=== PATIENT | male | born 1995 | race Caucasian/White ===

== ENCOUNTER 2022-10-20 15:44 | Outpatient (CLI) | payer OTHER, SELFPAY | END 2022-10-20 15:45 | disposition home or self-care (01) | PROVIDERS: PCP Emergency Medicine; Visit Provider Emergency Medicine | DX: Z00.00 Encounter for general adult medical examination without abnormal findings (principal); I10 Essential (primary) hypertension; Z13.6 Encounter for screening for cardiovascular disorders | CPT/HCPCS: 80048; 80061 ==

== ENCOUNTER 2023-10-11 08:42 | Outpatient (CLI) | payer OTHER, SELFPAY | END 2023-10-11 08:43 | disposition home or self-care (01) | PROVIDERS: PCP Emergency Medicine; Visit Provider Emergency Medicine | DX: I10 Essential (primary) hypertension (principal); Z13.220 Encounter for screening for lipoid disorders | CPT/HCPCS: 80048; 80061 ==

== ENCOUNTER 2024-06-17 10:21 | Outpatient (CLI) | payer OTHER, SELFPAY ==
--- NOTE | 2024-06-17 10:45 | CRLHL7_ITS ---
For Patients: As a result of the Century Cures Act, medical imaging exams and procedure reports are released immediately into your electronic medical record. You may view this report before your referring provider. If you have questions, please contact your health care provider. INDICATION: Lump inferior to the left testicle COMPARISON: none TECHNIQUE: Barakat scale imaging was performed of the scrotum. In addition color Doppler and spectral Doppler analysis was performed of the testes. FINDINGS: The testes demonstrate normal arterial and venous blood flow on color Doppler and spectral Doppler analysis. The testes have uniform echogenicity with no evidence of a suspicious mass or area of inflammation. The right testis measures 4.9 x 4.5 x 2.5 cm in size and the left testis measures 5.4 x 3.6 x 3.4 cm. The epididymis appears normal bilaterally. There is no evidence of a hydrocele or varicocele. IMPRESSION: Normal scrotal ultrasound. Dictated by Dom Bell MD @ 06/17/2024 11:59:01 AM (Electronically Signed)
== END 2024-06-17 10:22 | disposition home or self-care (01) ==
PROVIDERS: PCP Emergency Medicine; Visit Provider Family Medicine
DX: N50.89 Other specified disorders of the male genital organs (principal)
CPT/HCPCS: 76870; 93976

== ENCOUNTER 2024-10-16 08:47 | Outpatient (CLI) | payer OTHER, SELFPAY | END 2024-10-16 08:48 | disposition home or self-care (01) | PROVIDERS: PCP Emergency Medicine; Visit Provider Emergency Medicine | DX: I10 Essential (primary) hypertension (principal) | CPT/HCPCS: 80048; 82088; 84244; 84443 ==

== ENCOUNTER 2024-10-22 08:01 | Outpatient (CLI) | payer OTHER, SELFPAY ==
--- NOTE | 2024-10-22 08:15 | CRLHL7_ITS ---
For Patients: As a result of the Century Cures Act, medical imaging exams and procedure reports are released immediately into your electronic medical record. You may view this report before your referring provider. If you have questions, please contact your health care provider. INDICATION: Hypertension. TECHNIQUE: Ultrasound renal and bladder complete. Barakat-scale and color Doppler sonographic images were acquired of the kidneys and urinary bladder. COMPARISON: None. FINDINGS: Right kidney: Size: 7.1 x 6.3 x 7.3 cm. Hydronephrosis: No. Abnormal cortical echotexture: No. Cortical thinning: No. Perinephric collection: No. Calcification: No. Masses: No. Left kidney: Size: 10 cm. Hydronephrosis: No. Abnormal cortical echotexture: No. Cortical thinning: No. Perinephric collection: No. Calcification: No. Masses: No. Renal artery visualization: Right: Adequate. 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 Left: AdequateBifurcation of the mid renal artery into two distal renal arteries. Aortic velocity: 185.2 cm/sec. Right renal artery: Max velocity: 159.4 cm/sec RAR (Renal aorta ratio): 0.9 Normal: Max velocity < 180 cm/sec, RAR < 3.5 Stenosis < 60%: Max velocity < 180 cm/sec, RAR < 3.5 Stenosis < 60%: Max velocity < 180 cm/sec, RAR < 3.5 Left renal artery: Max velocity: 164.6 cm/sec RAR (Renal aorta ratio): 0.9 Normal: Max velocity < 180 cm/sec, RAR < 3.5 Stenosis < 60%: Max velocity < 180 cm/sec, RAR < 3.5 Stenosis < 60%: Max velocity < 180 cm/sec, RAR < 3.5 Brisk systolic upstrokes bilaterally with no tardus parvus waveforms. Resistive indices Right kidney arcuate: Upper pole 0.6, mid 0.6, lower pole 0.6. Left kidney arcuate: Upper pole 0.5, mid 0.5, lower pole 0.6. Normal: 0.3-0.8 Bilateral renal veins are patent. IMPRESSION: 1. No sonographic evidence of a hemodynamically significant renal artery stenosis bilaterally. 2. No hydronephrosis or visualized cortical thinning bilaterally. Dictated by Milton Snow MD @ 10/24/2024 11:58:26 PM (Electronically Signed)
== END 2024-10-22 08:02 | disposition home or self-care (01) ==
LOC: US 08:02
PROVIDERS: PCP Emergency Medicine; Visit Provider Emergency Medicine
DX: I10 Essential (primary) hypertension (principal)
CPT/HCPCS: 76775; 93975